=== PATIENT | male | born 1960 | race American Indian/Alaskan Native ===

== ENCOUNTER 2023-02-22 19:59 | Emergency (ER) | payer OTHER, SELFPAY ==
[2023-02-22 20:49] VITALS: BP 189/84; PULSE 72; RESP 17; TEMP 36.5; O2SAT 97; BMI 20.9
--- NOTE | 2023-02-23 00:33 | ED_ITS ---
HPI - Extremity Problem General: Chief complaint: Extremity Problem,Nontraumatic Stated complaint: Hip Cramps\Spas\Cant put weight on it Time Seen by Provider: 02/23/23 00:33 History of Present Illness: 62-year-old male patient comes in today with complaints of back pain radiating into the left hip and down the lower leg. Patient denies any loss of bowel or bladder control. Patient reports pain on and off for the last year. Patient appears nontoxic. Patient appears in no acute distress. Patient reports pain has been worse over the last 2 weeks. Patient has been seen twice in the [facility] clinic and treated with steroids and NSAIDs. Patient appears nontoxic. Patient has been riding in the car more often to see his daughter who recently had surgery. Associated symptoms: Deny chest pain or fever(s) Review of Systems Const: Denies: fever(s) Card: Denies: chest pain Resp: Denies: dyspnea GI: Denies: vomiting Musc: Denies: back pain Neuro: Denies: numbness in extremities PFSH ED PFSH: Social History Smoking and tobacco status: never smoked Physical Exam Const: COMMON NORMALS: alert HENMT: COMMON NORMALS: normocephalic HEAD & SCALP: normocephalic Neck/C-Spine: COMMON NORMALS: full ROM Resp: COMMON NORMALS: normal respiratory effort and clear to auscultation bilaterally AUSCULTATION: clear to auscultation bilaterally Cardio: COMMON NORMALS: regular rate and regular rhythm RATE: regular rate RHYTHM: regular rhythm Back/Pelvis: SACROILIAC JOINTS: Yes SI joint(s) abnormal SI joint details: tender to palpation (Left side) Extremity: COMMON NORMALS: full ROM Neuro: SENSORIUM/ORIENTATION: Yes alert Skin: COMMON NORMALS: turgor normal GENERAL SKIN EXAM: turgor normal Course Vital Signs: Vital signs: Vital Signs Temperature 97.7 F 02/22/23 20:49 Pulse Rate 72 02/22/23 20:49 Respiratory Rate 17 02/22/23 20:49 Blood Pressure 189/84 02/22/23 20:49 Pulse Oximetry 97 02/22/23 20:49 Oxygen Delivery Me thod Room Air 02/22/23 20:49 MDM - Extremity (Nontraumatic) Medical Decision Making 62-year-old male patient comes in today with complaints of low back pain. On exam patient has some tenderness to the lower lumbar spine and left sacroiliac joint. Patient moves all extremities well. Patient denies any loss of bowel or bladder control. Differential diagnosis includes but not limited to intervertebral disc disease, facet arthritis, lumbar strain, sciatica. X-ray of the hip was unremarkable. X-ray of the lumbar spine noted some significant disc degeneration throughout the lumbar spine and some spondylolisthesis along the L4 L5-S1 area. Patient was given some ketorolac and hydrocodone for his pain. Patient did have improvement and better control of pain. We will start patient on naproxen and hydrocodone and place case management follow-up with orthopedic computer support specialist. Patient reported understanding of care plan and need for follow-up or return to the ER. Discharge Plan Discharge Patient Disposition: Home Clinical Impression: Left lumbar radiculopathy Spondylolisthesis Qualifiers: Spinal region: lumbar Qualified Code(s): M43.16 - Spondylolisthesis, lumbar region Condition: Stable Prescriptions: New naproxen 500 mg tablet 500 mg PO BID Qty: 20 0RF hydrocodone-acetaminophen 5-325 mg tablet 1 tab PO Q8H PRN (Reason: pain (scale score 7-10)) Qty: 10 0RF Discharge Orders: Discharge ED (Routine); Ordered 02/23/23 Ordered By: Kwame Castro Referrals: Michael Rousseau MD [Primary Care Provider] - Discharge Diet: Usual diet Discharge Activity: Increase activity as tolerated Patient Instructions: Opioid Safety, Pain Management Activity Restrictions/Additional Instructions: Use medication as directed. Drink plenty of water with medication. Maintain activity as tolerated. Follow-up with primary care as needed. Case management will contact you regarding follow-up appointment with orthopedic computer support specialist. Coding Level of Care Code ED Chief Nuclear Medicine Technologist for Carissa Matias
--- NOTE | 2023-02-23 00:40 | XRR_ITS ---
PROCEDURE INFORMATION: Exam: XR Left Hip Exam date and time: 02/23/2023 12:52 AM Age: 62 years old Clinical indication: Hip pain; Patient HX: C/O low back pain radiating to left hip. No recent injury. ; Additional info: Pain with weight bearing TECHNIQUE: Imaging protocol: Radiologic exam of the left hip. Views: 2 or 3 views hip with pelvis when performed. COMPARISON: No relevant prior studies available. FINDINGS: Bones/joints: Mild degenerative changes of the right hip joint with mild sclerosis along the acetabular margin. Mild degenerative changes of the SI joints. Partially imaged degenerative changes of the lumbosacral spine. No acute fracture. Soft tissues: Unremarkable. XR/XR hip LT 2-3V wo/w pel* [id number] IMPRESSION: No acute fractures are identified.
--- NOTE | 2023-02-23 00:40 | XRR_ITS ---
PROCEDURE INFORMATION: Exam: XR Lumbosacral Spine Exam date and time: 02/23/2023 12:52 AM Age: 62 years old Clinical indication: Patient HX: C/O low back pain radiating to left hip. No recent injury. TECHNIQUE: Imaging protocol: Radiologic exam of the lumbosacral spine. Views: 2 or 3 views. COMPARISON: CR XR hip RT 2-3V wo/w pel* [id number] 08/08/2019 11:17 AM FINDINGS: Bones/joints: Grade 1 anterolisthesis of L4 on L5 with uncovering of the disc and diffuse disc bulge. Likely bilateral L5 pars interarticularis defects. There is suspected spondylolysis of L4. Minimal retrolisthesis of L1 on L2. Suspected minimal anterolisthesis of L5 on S1. Mild kyphotic deformity centered at T12-L1. Minimal levocurvature of the thoracolumbar junction. The vertebral body heights are maintained. No evidence of acute fractures. Advanced degenerative disc disease.. There is severe disc space height loss at L5-S1 and L4-L5. Additionally, severe disc space height loss at T12-L1 and L1-L2. Advanced facet arthropathy at multiple levels. Severe neural foraminal stenosis at L5-S1. [id number] spinal canal stenosis at T12-L1 and L1-L2 as well as L4-L5. There are degenerative changes of the SI joints. Soft tissues: Unremarkable. Gastrointestinal tract: Diffuse gaseous and fecal matter throughout the colon. XR/XR lumbar spine 2-3V* [id number] IMPRESSION: 1. No acute fracture is identified. 2. Multilevel degenerative disc and joint disease of the lumbosacral spine as outlined above.
[2023-02-23] MEDS: HYDROcodone-acetaminophen 10-325 mg Tablet 1 TAB PO (00:52)
[2023-02-23] MEDS: ketorolac 30 mg/mL INJ IM (00:55)
[2023-02-23 01:36] VITALS: BP 134/79; PULSE 73; RESP 16; O2SAT 96
--- NOTE | 2023-02-23 08:53 | DCPLANNER ---
Addendum entered by Terri Bentley 03/04/23 09:11: Patient had a follow up appointment scheduled with ortho - patient did attend appointment. Addendum entered by Terri Bentley 02/24/23 08:28: Patient has a follow up appointment scheduled for Thursday, March 02, 2023 at 10:30 with Lior Larry at ortho. Original Note: demand generator manager had message to schedule a follow up appointment for patient with ortho. demand generator manager sent patients information to the front office staff at ortho. Patients information will be printed and reviewed. Clinic will call patient with appointment information.
== END 2023-02-23 01:37 | disposition home or self-care (01) ==
PROVIDERS: Emergency Provider Nurse Practitioner Family; PCP Family Medicine
DX: M43.16 Spondylolisthesis, lumbar region (principal); M54.16 Radiculopathy, lumbar region
CPT/HCPCS: 72100; 73502; 96372; 99284; J1885

== ENCOUNTER → 2023-03-02 10:57 | Outpatient (BNVA) | payer OTHER, SELFPAY | PROVIDERS: PCP Family Medicine; Referring Provider Nurse Practitioner Family; Visit Provider Physician Assistant | DX: M43.10 Spondylolisthesis, site unspecified (principal); M54.16 Radiculopathy, lumbar region | CPT/HCPCS: 72110 ==

== ENCOUNTER → 2023-03-11 13:51 | Outpatient (BNVA) | payer OTHER, SELFPAY | PROVIDERS: PCP Family Medicine; Visit Provider Family Medicine | DX: B02.9 Zoster without complications (principal); F32.0 Major depressive disorder, single episode, mild | CPT/HCPCS: 80053; 80061; 85025 ==

== ENCOUNTER 2023-03-19 08:23 | Outpatient (CLI) | payer OTHER, SELFPAY ==
--- NOTE | 2023-03-19 08:00 | MR_ITS ---
WS: [id number] MRI LUMBAR SPINE NONCONTRAST HISTORY: lower back pain back and LEFT leg pain COMPARISON: 03/02/2023 radiographs TECHNIQUE: Sagittal and axial multisequence imaging is submitted. Very slight retrolisthesis of C3 and C4. Mild cervical degenerative disc disease. L4 anterolisthesis by 8.3 mm. L5 retrolisthesis by 5.3 mm. No acute fractures. Disc spaces are narrowed and desiccated. Most significant desiccation at T12-L1, L1-2, L4-5 and L5-S1 . Conus terminates normally at L1. T12-L1: Mild annular disc bulge, predominantly ventral to the vertebral bodies. Moderate bilateral fo raminal stenosis. L1-L2: L1 retrolisthesis with annular disc bulging. There is a large disc osteophyte extending into t he proximal RIGHT foramen along with facet joint arthritis. Severe RIGHT foraminal stenosis with a sm all component extending into the subarticular recess. There is also encroachment upon the central can al bilateral facet joint arthritis. Severe RIGHT foraminal and moderate to severe LEFT foraminal sten osis with additional moderate central and bilateral subarticular recess stenosis. Most significant en croachment upon the RIGHT L1 and L2 nerve roots. L2-L3: Moderate bilateral facet arthropathy. Moderate foraminal stenosis. L3-L4: Diffuse annular disc bulging with a LEFT paracentral disc protrusion and moderate facet arthri tis. Mild central stenosis. Moderate bilateral subarticular recess and foraminal stenosis. Suspected additional disc protrusion in the LEFT foramen. L4-L5: Diffuse marked annular disc bulging with osteophytic ridging. Large central to LEFT paracentra l and subarticular recess disc protrusion causing significant deformity on the thecal sac and effacem ent of CSF. Severe facet joint arthritis. Disc protrusions noted bilaterally into the foramina. Sever e bilateral foraminal stenosis. Severe central and bilateral subarticular recess stenosis. L5-S1: Mild diffuse annular disc bulging with a central disc protrusion. Marked facet joint arthritis . Severe bilateral foraminal stenosis. Very minimal encroachment upon the S1 nerve roots. More signif icant encroachment upon the L5 nerve roots. MR/MR lumbar spine wo con* [id number] IMPRESSION: 1. Multilevel advanced degenerative disc and facet arthropathy throughout the lumbar spine. 2. Grade 1 anterolisthesis of L4. 3. Severe central, bilateral subarticular recess and foraminal stenosis at L4- 5. 4. Along with annular disc bulging there is a large central to LEFT paracentra l disc protrusion at L4-5 and bilateral foraminal disc protrusions contributing to the stenosis. 5. Severe bilateral foraminal stenosis at L5-S1. 6. Moderate bilateral foraminal stenosis at T12-L1 and L2-3. 7. Large disc osteophyte complex and facet joint arthritis on the RIGHT at L1- 2 causing severe RIGHT foraminal stenosis. Moderate to severe LEFT foraminal st enosis at L1-2. 8. Moderate central and bilateral subarticular recess stenosis at L1-2. 9. LEFT paracentral disc protrusion at L3-4, additional LEFT foraminal disc pr otrusion. Moderate bilateral subarticular recess and foraminal stenosis at L3-4 .
== END 2023-03-19 08:24 | disposition home or self-care (01) ==
LOC: RAD 08:26
PROVIDERS: PCP Family Medicine; Visit Provider Physician Assistant
DX: M51.36 Other intervertebral disc degeneration, lumbar region (principal); M47.816 Spondylosis without myelopathy or radiculopathy, lumbar region; M48.061 Spinal stenosis, lumbar region without neurogenic claudication; M51.26 Other intervertebral disc displacement, lumbar region; M48.07 Spinal stenosis, lumbosacral region
CPT/HCPCS: 72148

== ENCOUNTER → 2023-07-22 15:16 | Outpatient (BNVA) | payer MEDICARE, SELFPAY | PROVIDERS: PCP Family Medicine; Visit Provider Family Medicine | DX: B35.1 Tinea unguium | CPT/HCPCS: 80053 ==

== ENCOUNTER → 2023-08-30 08:39 | Outpatient (BNVA) | payer MEDICARE, SELFPAY | PROVIDERS: PCP Family Medicine; Referring Provider Family Medicine; Visit Provider Psychiatry & Neurology Neurology | DX: R41.3 Other amnesia (principal) | CPT/HCPCS: 99203 ==

== ENCOUNTER 2023-10-13 13:33 | Outpatient (CLI) | payer MEDICARE, SELFPAY ==
--- NOTE | 2023-10-13 13:45 | MR_ITS ---
WS: [id number] MRI HEAD WITH CONTRAST TECHNIQUE: Sagittal T1, T2 axial, T2 axial FLAIR, axial susceptibility weighted imaging, axial diffus ion weighted images, and coronal T2 images were obtained. Pre and post-T1 axial and post T1 coronal i mages. ADC and FSPGR images. CLINICAL INFORMATION: R41.3 - Other amnesia COMPARISON: None. FINDINGS: No evidence of restricted diffusion to suggest acute ischemia. Ventricular system and basilar cistern s are patent. Moderate small vessel changes with moderate parenchymal volume loss. Small vessel caceres es in the vani. Normal posterior fossa. Normal vascular flow voids at the skull base. No extra-axial fluid collections. No evidence of mass or mass effect. Mild mucosal thickening in the paranasal sinus es. Mastoid air cells are well aerated. Normal posterior nasopharynx. No hemosiderin on the susceptibly weighted images. Normal optic chiasm and pituitary infundibulum. Mild symmetric atrophy temporal lobes and hippocampal formations. No abnormal gadolinium enhancement. Normal visualized dural venous sinuses. IMPRESSION: 1. No evidence of restricted diffusion to suggest acute ischemia. 2. Moderate small vessel changes with moderate parenchymal volume loss. Small vessel changes in the vani. 3. No abnormal gadolinium enhancement. 4. Mild symmetric atrophy temporal lobes hippocampal formations. 5. No hemosiderin on the susceptibly weighted images.
[2023-10-13] MEDS: gadobenate dimeglumine 20 mL vial IV (14:48)
== END 2023-10-13 13:34 | disposition home or self-care (01) ==
LOC: RAD 13:33
PROVIDERS: PCP Family Medicine; Visit Provider Psychiatry & Neurology Neurology
DX: R41.3 Other amnesia (principal)
CPT/HCPCS: 70553; A9577

== ENCOUNTER → 2023-11-17 14:27 | Outpatient (BNVA) | payer MEDICARE, SELFPAY | PROVIDERS: PCP Family Medicine; Visit Provider Psychiatry & Neurology Neurology | DX: R41.3 Other amnesia (principal) | CPT/HCPCS: 36415; 82542; 82607; 82746; 83735; 83921; 86592; 86780; 99212 ==

== ENCOUNTER 2024-01-21 17:09 | Emergency (ER) | payer MEDICARE, SELFPAY ==
[2024-01-21 17:27] VITALS: BP 176/93; PULSE 52; RESP 15; TEMP 36.6; O2SAT 97
[2024-01-21 17:36] VITALS: BP 169/79; PULSE 52; O2SAT 97
--- NOTE | 2024-01-21 17:47 | XRR_ITS ---
PROCEDURE INFORMATION: Exam: XR Chest Exam date and time: 01/21/2024 6:16 PM Age: 63 years old Clinical indication: Condition or disease; Patient HX: HTN; Headache; No previous cardiac HX TECHNIQUE: Imaging protocol: Radiologic exam of the chest. Views: 2 views. COMPARISON: CR XR shoulder RT min 2V* [id number] 08/08/2019 11:13 AM FINDINGS: Lungs: Lungs are clear bilaterally. Pleural spaces: No pleural effusion. No pneumothorax. Heart/Mediastinum: The cardiac silhouette is mildly enlarged. Mediastinal contours are unremarkable. Bones/joints: Unremarkable for age. XR/XR chest 2V* [id number] IMPRESSION: 1. No acute cardiopulmonary process. 2. Incidental/nonacute findings are listed in the report.
--- NOTE | 2024-01-21 17:49 | ED_ITS ---
Documented by User: ADWOA Lozoya 01/21/24 19:59 HPI - General Adult 2 General: Chief complaint: General Medical Stated complaint: High Blood pressure Time Seen by Provider: 01/21/24 17:28 Source: patient Mode of arrival: ambulatory Limitations: no limitations History of Present Illness: Patient is a 63-year-old male who presents to the emergency department complaining of high blood pressure. Patient states he saw Dr. Araujo due to recent diagnosis of early onset Alzheimer's, and was found to have 2 elevated blood pressure readings. He also states that last time at his primary's office, it was also elevated. He has never been treated for high blood pressure, but does note that it does get elevated from time to time. His spouse is a nurse and takes his blood pressure whenever he complains of headaches or other symptoms. He currently is stating that he has a headache, feels off balance on his feet, is intermittently nauseous, and has been increasingly fatigued. He denies any recent medication changes aside from taking an antibiotic for sinus infection. He does state that within the last 6-8 months, he has started on an antidepressant as well as galantamine. He denies any chest pain, breathing difficulties, or any other symptoms. He does note that his father and sister have both had heart attacks at a relatively early age. He denies any personal or family history of strokes. MD complaint: HTN Associated symptoms: Reports headache(s) and nausea; Deny chest pain, dyspnea, palpitations or vomiting Treatments prior to arrival: none Review of Systems 2 General: Reports: 10 or more systems reviewed and unremarkable except in HPI and below Const: Reports: fatigue; Denies: fever(s) or chills Eyes: Denies: change in vision Card: Denies: chest pain, palpitations, edema or lightheadedness Resp: Denies: dyspnea, productive cough or wheezing GI: Reports: nausea; Denies: abdominal pain, vomiting, hematemesis or diarrhea : Denies: flank pain, difficulty urinating, dysuria or urinary frequency Musc: Denies: neck pain, back pain or joint pain Neuro: Reports: headache(s) and dizziness ( Off balance on her feet ); Denies: numbness in extremities, weakness in extremities or sensory changes PFSH ED 2 PFSH: Medical History History of lower leg fracture History of shingles Family History Grandmother Cancer Maternal-unknown Mother Cancer female Other Diabetes Denies family history of CAD (coronary artery disease) Clotting disorder Dementia Hyperlipidemia Psychiatric illness Chronic kidney disease (CKD) Anesthesia complication Bleeding disorder Lung disease Hypertension Stroke Social History Smoking and tobacco/nicotine status: former use of tobacco/nicotine Alcohol intake: never Substance/Drug Use: current Substance/Drug use frequency: few times a month Lives independently: Yes Marital status: Current occupational status: retired Special iraida needs: No Agree to transfusion: Yes Physical Exam 2 Const: COMMON NORMALS: no acute distress, average body habitus, patient oriented x3, no limitations, healthy appearing, alert and well nourished G ENERAL APPEARANCE: cooperative and comfortable ORIENTATION/CONSCIOUSNESS: Yes awake HENMT: COMMON NORMALS: normocephalic and atraumatic HEAD & SCALP: n ormocephalic and atraumatic Eye: COMMON NORMALS: Equal, round and reactive pupils present, EOMs intact bilaterally, conjunctivae normal, no scleral icterus and normal visual sterling by confrontation CONJUNCTIVA: Yes conjunctivae normal PUPIL: Yes Equal, round and reactive pupils present Neck/C-Spine: COMMON NORMALS: full ROM, no lymphadenopathy, supple, no JVD, Thyroid normal and No carotid bruits THYROID: Thyroid normal Chest: COMMONS NORMALS: normal inspection of the chest and normal palpation of entire chest wall Resp: COMMON NORMALS: normal respiratory effort, No retractions, No use of accessory muscles and clear to auscultation bilaterally AUSCULTATION: clear to auscultation bilaterally Cardio: COMMON NORMALS: no JVD, regular rate, regular rhythm, S1 normal heart sound present, S2 normal heart sound present, No gallops present (Cardio), No clicks present (Cardio), No murmurs present (Cardio), No rub (Cardio) and Peripheral pulses 2+ throughout RATE: regular rate RHYTHM: regular rhythm HEART SOUNDS: S1 normal heart sound present and S2 normal heart sound present PERIPHERAL PULSES: Peripheral pulses 2+ throughout GI: COMMON NORMALS: Normal to inspection, nondistended, normoactive bowel sounds present, Soft to palpation, non-tender, No hepatosplenomegaly present and no bruits PALPATION: Yes Soft to palpation and Yes No hepatosplenomegaly present Extremity: COMMON NORMALS: normal to inspection, full ROM, capillary refill normal and no pedal edema Neuro: COMMON NORMALS: patient oriented x3, moves all extremities, no focal motor deficits and no sensory deficits noted SENSORIUM/ORIENTATION: Yes alert Psych: COMMON NORMALS: mental status grossly normal Course 2 Vital Signs: Vital signs: Vital Signs Temperature 97.8 F 01/21/24 17:27 Pulse Rate 52 L 01/21/24 17:36 Respiratory Rate 15 01/21/24 17:27 Blood Pressure 169/79 01/21/24 17:36 Pulse Oximetry 97 01/21/24 17:36 Oxygen Delivery Me thod Room Air 01/21/24 17:36 MDM - General Adult Medical Decision Making Patient seen and evaluated in the emergency department today due to hypertension. Patient reports he has had elevated blood pressure readings in the past and states that it has mostly been attributed to a whitecoat syndrome and that he has never been on any medications. He is now concerned because he is an active individual and has started to become intermittently nauseous with headaches, though he states it might have been due to hitting himself in the head on a door frame last week. He reports to me that he has follow-up scheduled on Wednesday with primary care, but got concerned today when he noticed his blood pressure was 190 systolic. Patient's vitals overall unremarkable aside from mild bradycardia, the patient notes to me his heart rate normally runs on the lower end. While in the room his heart rate will run anywhere between 48?65 beats per minute. He is not noting any associated symptoms such as lightheadedness or dizziness upon standing, though he notes he has felt off balance on his feet recently. I ordered basic laboratory tests, all of which unremarkable aside from a decreased GFR, which the patient states he has had monitored in the past. EKG negative for any acute ST segment changes, noting sinus bradycardia. Chest x-ray did not demonstrate any acute cardiopulmonary process. UA negative. Due to patient's overall unremarkable workup, I will treat his elevated blood pressure with Norvasc to be taken until his follow-up appointment with primary care on Wednesday where he can discuss any appropriate or necessary medication changes. I encouraged him to continue fluids and exercise, and return precautions are given. Patient agrees with plan and will be discharged home. Medical Records I reviewed the patient's medical records. Lab Data I reviewed the patient's lab results. 01/21/24 17:35 01/21/24 17:35 Radiology Impressions Chest X-Ray 01/21/24 17:47 IMPRESSION: 1. No acute cardiopulmonary process. 2. Incidental/nonacute findings are listed in the report. Laboratory Results WBC 3.31 10^3/uL (3.29-11.43) 01/21/24 17:35 RBC 4.08 10^6/uL (3.85-5.65) 01/21/24 17:35 Hgb 11.80 g/dL (11.27-16.99) 01/21/24 17:35 Hct 35.6 % (37-53) L 01/21/24 17:35 MCV 87.3 fl (82-101) 01/21/24 17:35 MCH 28.9 pg (27-33) 01/21/24 17:35 MCHC 33.1 g/dL (30-55) 01/21/24 17:35 RDW 13.4 % (12.1-15.1) 01/21/24 17:35 Plt Count 149 10^3/cmm (157-399) L 01/21/24 17:35 MPV 9.4 fL (7.4-10.4) 01/21/24 17:35 Neut % (Auto) 61.3 % 01/21/24 17:35 Lymph % (Auto) 23.6 % 01/21/24 17:35 [place] % (Auto) 11.2 % 01/21/24 17:35 Eos % (Auto) 3.3 % 01/21/24 17:35 Baso % (Auto) 0.0 % 01/21/24 17:35 Neut # (Auto) 2.03 10^3/uL (1.8-7.7) 01/21/24 17:35 Lymph # (Auto) 0.8 10^3/uL (0.8-4.8) 01/21/24 17:35 [place] # (Auto) 0.4 10^3/uL (0.2-0.9) 01/21/24 17:35 Eos # (Auto) 0.1 10^3/uL (0.0-0.8) 01/21/24 17:35 Baso # (Auto) 0.0 10^3/uL (0.0-0.1) 01/21/24 17:35 Nucleated RBC % (auto) 0 % 01/21/24 17:35 Nucleated RBCs # 0.0 /100WBC 01/21/24 17:35 Sodium 141 mmol/L (136-145) 01/21/24 17:35 Potassium 4.0 mmol/L (3.5-5.1) 01/21/24 17:35 Chloride 106 mmol/L (98-107) 01/21/24 17:35 Carbon Dioxide 28 mmol/L (22-29) 01/21/24 17:35 Anion Gap 11.0 (5-19) 01/21/24 17:35 BUN 8 mg/dL (8-23) 01/21/24 17:35 Creatinine 1.1 mg/dL (0.7-1.2) 01/21/24 17:35 GFR Calculation 67.2 mL/min (90-130) L 01/21/24 17:35 Glucose 101 mg/dL (65-115) 01/21/24 17:35 Calculated Osmolality 290 mOsm/kg (285-295) 01/21/24 17:35 Calcium 8.6 mg/dL (8.5-10.5) 01/21/24 17:35 Total Bilirubin 0.6 mg/dL (0.15-1.2) 01/21/24 17:35 AST 32 U/L (0-40) 01/21/24 17:35 ALT 25 U/L (0-41) 01/21/24 17:35 Alkaline Phosphatase 92 U/L (40-130) 01/21/24 17:35 Total Protein 6.6 g/dL (6.6-8.7) 01/21/24 17:35 Albumin 4.0 g/dL (3.5-5.2) 01/21/24 17:35 Globulin 2.6 g/dL (1.3-4.6) 01/21/24 17:35 Urine Color Yellow (Yellow) 01/21/24 18:54 Urine Appearance Clear (CLEAR) 01/21/24 18:54 Urine pH 8 (5-7) H 01/21/24 18:54 Ur Specific [place] 1.005 (1.005-1.030) 01/21/24 18:54 Urine Protein Neg (Negative) 01/21/24 18:54 Urine Glucose (UA) Norm (Normal) 01/21/24 18:54 Urine Ketones Negative (Negative) 01/21/24 18:54 Urine Blood Neg (Negative) 01/21/24 18:54 Urine Nitrate Negative (Negative) 01/21/24 18:54 Urine Bilirubin Neg (Negative) 01/21/24 18:54 Prot Sulfosalicylic Acd Negative (Negative) 01/21/24 18:54 Urine Urobilinogen Neg mg/dL (Negative) 01/21/24 18:54 Ur Leukocyte Esterase Negative (Negative) 01/21/24 18:54 All radiology interpretation(s) finalized by discharge EKG Data EKG 1: I personally reviewed and interpreted this EKG as follows: EKG interpretation date: 01/21/24 EKG interpretation time: 18:13 Prior EKG tracings: not available for review Interpretation: EKG reviewed by me. Sinus bradycardia. Rate 49. Normal axis. Normal intervals. No acute ST segment changes. No previous for comparison. Computer generated interpretation: Chest X-Ray 01/21/24 17:47 IMPRESSION: 1. No acute cardiopulmonary process. 2. Incidental/nonacute findings are listed in the report. Discharge Plan Discharge Patient Disposition: Home Clinical Impression: Essential hypertension Condition: Stable Prescriptions: New Norvasc 5 mg tablet 5 mg PO DAILY Qty: 10 0RF No Action Medical Marijuana PO fexofenadine-pseudoephedrine [Deb-D 12 Hour] 60-120 mg tablet extended release 12 hr 1 tab PO Q12H PRN (Reason: sinus symptoms) 14 Days Qty: 30 0RF amoxicillin-pot clavulanate 875-125 mg tablet 1 tab PO BID 10 Days Qty: 20 0RF galantamine 4 mg tablet 4 mg PO BID Qty: 120 5RF Rx Instructions: 1 in pm for 1 wk,1 in am 1 in pm for 1 wk, 1 in am 2 in pm for wk, 2 in am 2 in pm therafter thiamine HCl (vitamin B1) 100 mg tablet 100 mg PO DAILY Qty: 90 4RF escitalopram oxalate 20 mg tablet 20 mg PO DAILY Qty: 90 1RF gabapentin 100 mg capsule 200 mg PO TID PRN (Reason: shingles) Qty: 360 0RF Discharge Orders: Discharge ED (Routine); Ordered 01/21/24 Ordered By: Modesto Naik Referrals: Michael Rousseau MD [Primary Care Provider] - Discharge Diet: Usual diet Discharge Activity: Increase activity as tolerated Patient Instructions: Hypertension (ED) Activity Restrictions/Additional Instructions: Norvasc as prescribed. Plenty of fluids. Continue regular exercise. Follow-up with primary care next week as planned. Return with any new or concerning symptoms. Coding Level of Care Code ED Multiple Slide Operator for Chg Fwd Documented by User: Andrew Bradley DO 01/22/24 07:01 HPI - General Adult 2 General: Chief complaint: General Medical Stated complaint: High Blood pressure Time Seen by Provider: 01/21/24 17:28 PFSH ED 2 PFSH: Medical History History of lower leg fracture History of shingles Family History Grandmother Cancer Maternal-unknown Mother Cancer female Other Diabetes Denies family history of CAD (coronary artery disease) Clotting disorder Dementia Hyperlipidemia Psychiatric illness Chronic kidney disease (CKD) Anesthesia complication Bleeding disorder Lung disease Hypertension Stroke Social History Smoking and tobacco/nicotine status: former use of tobacco/nicotine Alcohol intake: never Substance/Drug Use: current Substance/Drug use frequency: few times a month Lives independently: Yes Marital status: Current occupational status: retired Special iraida needs: No Agree to transfusion: Yes Course 2 Vital Signs: Vital signs: Vital Signs Temperature 97.8 F 01/21/24 17:27 Pulse Rate 52 L 01/21/24 17:36 Respiratory Rate 01/21/24 17:27 Blood Pressure 169/79 01/21/24 17:36 Pulse Oximetry 97 01/21/24 17:36 Oxygen Delivery Me thod Room Air 01/21/24 17:36 MDM - General Adult Medical Decision Making Patient seen and evaluated in the emergency department today due to hypertension. Patient reports he has had elevated blood pressure readings in the past and states that it has mostly been attributed to a whitecoat syndrome and that he has never been on any medications. He is now concerned because he is an active individual and has started to become intermittently nauseous with headaches, though he states it might have been due to hitting himself in the head on a door frame last week. He reports to me that he has follow-up scheduled on Wednesday with primary care, but got concerned today when he noticed his blood pressure was 190 systolic. Patient's vitals overall unremarkable aside from mild bradycardia, the patient notes to me his heart rate normally runs on the lower end. While in the room his heart rate will run anywhere between 48?65 beats per minute. He is not noting any associated symptoms such as lightheadedness or dizziness upon standing, though he notes he has felt off balance on his feet recently. I ordered basic laboratory tests, all of which unremarkable aside from a decreased GFR, which the patient states he has had monitored in the past. EKG negative for any acute ST segment changes, noting sinus bradycardia. Chest x-ray did not demonstrate any acute cardiopulmonary process. UA negative. Due to patient's overall unremarkable workup, I will treat his elevated blood pressure with Norvasc to be taken until his follow-up appointment with primary care on Wednesday where he can discuss any appropriate or necessary medication changes. I encouraged him to continue fluids and exercise, and return precautions are given. Patient agrees with plan and will be discharged home. Chart reviewed Lab Data 01/21/24 17:35 01/21/24 17:35 Radiology Impressions Chest X-Ray 01/21/24 17:47 IMPRESSION: 1. No acute cardiopulmonary process. 2. Incidental/nonacute findings are listed in the report. Laboratory Results WBC 3.31 10^3/uL (3.29-11.43) 01/21/24 17:35 RBC 4.08 10^6/uL (3.85-5.65) 01/21/24 17:35 Hgb 11.80 g/dL (11.27-16.99) 01/21/24 17:35 Hct 35.6 % (37-53) L 01/21/24 17:35 MCV 87.3 fl (82-101) 01/21/24 17:35 MCH 28.9 pg (27-33) 01/21/24 17:35 MCHC 33.1 g/dL (30-55) 01/21/24 17:35 RDW 13.4 % (12.1-15.1) 01/21/24 17:35 Plt Count 149 10^3/cmm (157-399) L 01/21/24 17:35 MPV 9.4 fL (7.4-10.4) 01/21/24 17:35 Neut % (Auto) 61.3 % 01/21/24 17:35 Lymph % (Auto) 23.6 % 01/21/24 17:35 [place] % (Auto) 11.2 % 01/21/24 17:35 Eos % (Auto) 3.3 % 01/21/24 17:35 Baso % (Auto) 0.0 % 01/21/24 17:35 Neut # (Auto) 2.03 10^3/uL (1.8-7.7) 01/21/24 17:35 Lymph # (Auto) 0.8 10^3/uL (0.8-4.8) 01/21/24 17:35 [place] # (Auto) 0.4 10^3/uL (0.2-0.9) 01/21/24 17:35 Eos # (Auto) 0.1 10^3/uL (0.0-0.8) 01/21/24 17:35 Baso # (Auto) 0.0 10^3/uL (0.0-0.1) 01/21/24 17:35 Nucleated RBC % (auto) 0 % 01/21/24 17: Nucleated RBCs # 0.0 /100WBC 01/21/24 17:35 Sodium 141 mmol/L (136-145) 01/21/24 17:35 Potassium 4.0 mmol/L (3.5-5.1) 01/21/24 17:35 Chloride 106 mmol/L (98-107) 01/21/24 17:35 Carbon Dioxide 28 mmol/L (22-29) 01/21/24 17:35 Anion Gap 11.0 (5-19) 01/21/24 17:35 BUN 8 mg/dL (8-23) 01/21/24 17:35 Creatinine 1.1 mg/dL (0.7-1.2) 01/21/24 17:35 GFR Calculation 67.2 mL/min (90-130) L 01/21/24 17:35 Glucose 101 mg/dL (65-115) 01/21/24 17:35 Calculated Osmolality 290 mOsm/kg (285-295) 01/21/24 17:35 Calcium 8.6 mg/dL (8.5-10.5) 01/21/24 17:35 Total Bilirubin 0.6 mg/dL (0.15-1.2) 01/21/24 17:35 AST 32 U/L (0-40) 01/21/24 17:35 ALT 25 U/L (0-41) 01/21/24 17:35 Alkaline Phosphatase 92 U/L (40-130) 01/21/24 17:35 Total Protein 6.6 g/dL (6.6-8.7) 01/21/24 17:35 Albumin 4.0 g/dL (3.5-5.2) 01/21/24 17:35 Globulin 2.6 g/dL (1.3-4.6) 01/21/24 17:35 Urine Color Yellow (Yellow) 01/21/24 18:54 Urine Appearance Clear (CLEAR) 01/21/24 18:54 Urine pH 8 (5-7) H 01/21/24 18:54 Ur Specific [place] 1.005 (1.005-1.030) 01/21/24 18:54 Urine Protein Neg (Negative) 01/21/24 18:54 Urine Glucose (UA) Norm (Normal) 01/21/24 18:54 Urine Ketones Negative (Negative) 01/21/24 18:54 Urine Blood Neg (Negative) 01/21/24 18:54 Urine Nitrate Negative (Negative) 01/21/24 18:54 Urine Bilirubin Neg (Negative) 01/21/24 18:54 Prot Sulfosalicylic Acd Negative (Negative) 01/21/24 18:54 Urine Urobilinogen Neg mg/dL (Negative) 01/21/24 18:54 Ur Leukocyte Esterase Negative (Negative) 01/21/24 18:54 EKG Data EKG 1: Computer generated interpretation: Chest X-Ray 01/21/24 17:47 IMPRESSION: 1. No acute cardiopulmonary process. 2. Incidental/nonacute findings are listed in the report. Discharge Plan Discharge Patient Disposition: Home Clinical Impression: Essential hypertension Condition: Stable Prescriptions: New Norvasc 5 mg tablet 5 mg PO DAILY Qty: 10 0RF No Action Medical Marijuana PO fexofenadine-pseudoephedrine [Deb-D 12 Hour] 60-120 mg tablet extended release 12 hr 1 tab PO Q12H PRN (Reason: sinus symptoms) 14 Days Qty: 30 0RF amoxicillin-pot clavulanate 875-125 mg tablet 1 tab PO BID 10 Days Qty: 20 0RF galantamine 4 mg tablet 4 mg PO BID Qty: 120 5RF Rx Instructions: 1 in pm for 1 wk,1 in am 1 in pm for 1 wk, 1 in am 2 in pm for wk, 2 in am 2 in pm therafter thiamine HCl (vitamin B1) 100 mg tablet 100 mg PO DAILY Qty: 90 4RF escitalopram oxalate 20 mg tablet 20 mg PO DAILY Qty: 90 1RF gabapentin 100 mg capsule 200 mg PO TID PRN (Reason: shingles) Qty: 360 0RF Discharge Orders: Discharge ED (Routine); Ordered 01/21/24 Ordered By: Modesto Naik Referrals: Michael Rousseau MD [Primary Care Provider] - Discharge Diet: Usual diet Discharge Activity: Increase activity as tolerated Patient Instructions: Hypertension (ED) Activity Restrictions/Additional Instructions: Norvasc as prescribed. Plenty of fluids. Continue regular exercise. Follow-up with primary care next week as planned. Return with any new or concerning symptoms. Coding Level of Care Code ED Multiple Slide Operator for Carissa Matias
[2024-01-21] MEDS: sodium chloride 0.9% 1,000 ML 999 ML IV (17:55)
[2024-01-21 18:09] LABS: Eosinophils # 0.1 10^3/uL (0.0-0.8); Eosinophils % 3.3 %; Hematocrit 35.6 % (37-53); Lymphocytes # 0.8 10^3/uL (0.8-4.8); Lymphocytes % 23.6 %; Mean Corpuscular HGB Conc 33.1 g/dL (30-55); Mean Corpuscular Hemoglobin 28.9 pg (27-33); Mean Corpuscular Volume 87.3 fl (82-101); Mean Platelet Volume 9.4 fL (7.4-10.4); Monocytes # 0.4 10^3/uL (0.2-0.9); Monocytes % 11.2 %; Neutrophils # 2.03 10^3/uL (1.8-7.7); Neutrophils % 61.3 %; Nucleated Red Blood Cells % 0 %; Platelet Count 149 10^3/cmm (157-399); Red Blood Count 4.08 10^6/uL (3.85-5.65); Red Cell Distribution Width 13.4 % (12.1-15.1); White Blood Count 3.31 10^3/uL (3.29-11.43)
--- NOTE | 2024-01-21 18:12 | ECG_ITS ---
[facility] Test Date: 2024-01-21 Pat Name: Ed Noreen Department: Room: Gender: Male Internal Corrosion Specialist: : [id number] Requested By: Modesto Klein Order Number: [id number] Khang MD: Amos Hager M.D. Measurements Intervals Muse Rate: 49 P: 52 ID: [id number] QRS: 0 QRSD: 87 T: 7 QT: 461 QTc: 418 Interpretive Statements SINUS BRADYCARDIA No previous ECG available for comparison Electronically Signed On 01-21-2024 22:03:01 CDT by Amos Hager M.D. [email or web address]
[2024-01-21 18:15] LABS: Alanine Aminotransferase 25 U/L (0-41); Alkaline Phosphatase 92 U/L (40-130); Aspartate Amino Transferase 32 U/L (0-40); Blood Urea Nitrogen 8 mg/dL (8-23); Calcium 8.6 mg/dL (8.5-10.5); Carbon Dioxide 28 mmol/L (22-29); Chloride 106 mmol/L (98-107); Creatinine Clr Calc Pharmacy 59.4451; Globulin 2.6 g/dL (1.3-4.6); Glomerular Filtration Rate 67.2 mL/min (90-130); Glucose 101 mg/dL (65-115); Osmolality Calculated 290 mOsm/kg (285-295); Sodium 141 mmol/L (136-145); Total Bilirubin 0.6 mg/dL (0.15-1.2); Total Protein 6.6 g/dL (6.6-8.7)
[2024-01-21 19:07] LABS: Add Urine Microscopic? NO; Charge for UA Resulting for Rev
[2024-01-21 19:20] LABS: Bilirubin Urine Neg (Negative); Blood Urine Neg (Negative); Glucose Urine UA Norm (Normal); Ketones Urine Negative (Negative); Leukocyte Esterase Urine Negative (Negative); Nitrate Urine Negative (Negative); Protein Urine Neg (Negative); Specific Gravity, Urine 1.005 (1.005-1.030); Sulfosalicylic Acid Urine Negative (Negative); Urine Appearance Clear (CLEAR); Urine Color Yellow (Yellow); Urobilinogen Urine Neg (Negative); pH Urine 8 (5-7)
[2024-01-21] MEDS: amlodipine 5 mg Tablet PO (19:59)
== END 2024-01-21 20:09 | disposition home or self-care (01) ==
PROVIDERS: Emergency Provider Physician Assistant; PCP Family Medicine
DX: I10 Essential (primary) hypertension (principal); Z87.891 Personal history of nicotine dependence
CPT/HCPCS: 71046; 80053; 81003; 85025; 93005; 99285; J7030